=== PATIENT | female | born 1950 | race Caucasian/White ===

== ENCOUNTER → 2017-03-03 | Outpatient (CLI) | payer MEDICAID | LOC: FIMAGING 09:23 | PROVIDERS: ATTEND Internal Medicine Hematology & Oncology | DX: K82.1 Hydrops of gallbladder (principal); K80.20 Calculus of gallbladder without cholecystitis without obstruction; K76.89 Other specified diseases of liver; R93.2 Abnormal findings on diagnostic imaging of liver and biliary tract ==

== ENCOUNTER 2017-04-04 05:52 | Day surgery (SDC) | payer OTHER, MEDICAID ==
[2017-04-04] MEDS ORDERED: levOFLOXACIN 500 MG/DEXTROSE 100 ML IV ONE (06:16)
[2017-04-04] MEDS ORDERED: LR 1,000 ML IV ONE (06:18)
--- NOTE | 2017-04-04 06:21 | PDHPUP ---
History & Physical Update H&P update statement: This history and physical update is based on an assessment of the patient which was completed after admission or registration (within 24 hours), but prior to the surgery/procedure. H&P update: H&P reviewed & patient examined, no change in patient's condition since H&P completed
[2017-04-04 06:46] VITALS: PULSE 80
[2017-04-04] MEDS ORDERED: BUPIVACAINE 0.5% 30 ML SDV ONE (06:58)
[2017-04-04] MEDS ORDERED: PROPOFOL 200 MG/20 ML VIAL ONE (07:28)
[2017-04-04] MEDS ORDERED: fentaNYL 250 MCG/5 ML INJ ONE (07:28)
[2017-04-04] MEDS ORDERED: LIDOCAINE 2% 100 MG/5 ML SYR ONE (07:29)
[2017-04-04] MEDS ORDERED: ROCURONIUM 50 MG/5 ML VIAL ONE (07:29)
[2017-04-04] MEDS ORDERED: DEXAMETHASONE 4 MG/ML VIAL ONE ×2 (07:29)
[2017-04-04] MEDS ORDERED: LABETALOL HCL 5 MG/ML 20 ML MDV ONE (08:22)
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
[2017-04-04] MEDS ORDERED: ONDANSETRON 4 MG/2 ML VIAL IVP PRN (08:52)
[2017-04-04] MEDS ORDERED: LR 500 ML IV PRN (08:52)
[2017-04-04] MEDS ORDERED: fentaNYL 100 MCG/2 ML INJ IVP PRN (08:52)
[2017-04-04] MEDS ORDERED: ACETAMINOPHEN 500 MG TAB PO PRN (08:52)
[2017-04-04] MEDS ORDERED: NALOXONE HCL 0.4 MG/ML INJ IVP PRN (08:52)
--- NOTE | 2017-04-04 08:52 | POSTOPPROG ---
Post Op Note Date of Operation: 04/04/17 Surgeon: Ivanna Zavala Dispute Specialist: edy Anesthesiologist: emi Anesthesia: GET(General Endotracheal) Pre-op Diagnosis: symptomatic cholelithiasis Post-op Diagnosis: same Indication: 66yo F with symptomatic cholelithiasis on US Procedure: lap samuel Findings: stones Inf/Abcess present in the surg proc area at time of surgery?: No Depth: Organ Space EBL: Minimal Complications: none immediately post-op Specimen(s): gallbladder
--- NOTE | 2017-04-04 08:54 | POSTANESTH ---
Post Anesthetic Evaluation Respiratory Status: Normal, Stable Level of Consciousness/Mental Status: Can Participate in Eval Pain Control: Adequate, Prn Tx Ordered Nausea/Vomiting Control: Adequate, Prn Tx Ordered
[2017-04-04] MEDS ORDERED: ONDANSETRON 4 MG/2 ML VIAL ONE (10:56)
[2017-04-04 12:16] VITALS: RESP 16; TEMP 97.9
[2017-04-04 12:19] VITALS: BP 154/90; O2SAT 93
--- NOTE | 2017-04-08 17:31 | GOP ---
[f rep st] OPERATIVE REPORT DATE OF OPERATION: 04/04/2017 SURGEON: Ivanna Zavala MD J[employer]ING MACHINE OPERATOR: Minda Vuong PA-C ANESTHESIA: Chad Velarde MD/general. PREOPERATIVE DIAGNOSIS: Cholecystitis. POSTOPERATIVE DIAGNOSIS: Cholecystitis. PROCEDURE PERFORMED: Laparoscopic cholecystectomy. FINDINGS: SPECIMENS: Gallbladder. ESTIMATED BLOOD LOSS: 10 cc. INDICATIONS: The patient is 66-year-old who was referred for cholecystectomy. DESCRIPTION OF PROCEDURE: The patient was brought into the operating room and placed supine on the table, and general anesthesia was administered. Her abdomen was prepped and draped in the usual valentin rile fashion. I infiltrated all sites with 0.5% Marcaine prior to making incisions. I made an inci debra above her umbilicus. I elevated it and inserted a Veress needle. Passed the hanging drop test . Her abdomen insufflated easily to a pressure of 15 mmHg. Under direct vision, I placed a 5 mm tr ocar with a camera. There were no injuries from Veress needle placement. I placed a 10 mm subxipho id trocar and two 5 mm trocars along the right costal margin. I lifted her gallbladder cephalad and laterally to expose the triangle of Calot. I carefully exposed and dissected the cystic artery and the cystic duct so that they were the only 2 structures directly entering the gallbladder. They we re each singly clipped toward the gallbladder, doubly clipped distally, and transected with scissors to remove it from the gallbladder fossa with electrocautery. The gallbladder was placed in an Endo Catch bag and removed via the subxiphoid trocar. During the case, I identified the duodenum and the common bile duct, and both were protected. The clips were examined and were in satisfactory positi on. Hemostasis achieved on the gallbladder bed with electrocautery and Bindu. The abdomen was all owed to desufflate. Ports were removed under direct vision. The fascia at the 10 mm trocar site wa s closed with 0 Vicryl. Skin closed with 4-0 Monocryl. Dermabond applied. She was awakened in the operating room, extubated, and transferred to PACU in stable condition. /[id number]/MODL
== END 2017-04-04 11:40 | disposition home or self-care (01) ==
LOC: FSGY 05:52
PROVIDERS: ATTEND Surgery
PROC: 0FT44ZZ Resection of Gallbladder, Percutaneous Endoscopic Approach (ICD-10-PCS; principal; 2017-04-04 07:15)
DX: K80.20 Calculus of gallbladder without cholecystitis without obstruction (principal); R10.13 Epigastric pain; G40.909 Epilepsy, unspecified, not intractable, without status epilepticus; Z85.3 Personal history of malignant neoplasm of breast; Z88.0 Allergy status to penicillin
CPT/HCPCS: J1100; J1956; J2001; J2405; J2704; J3010; J3490

== ENCOUNTER → 2018-03-13 | Outpatient (CLI) | payer OTHER, MEDICAID | LOC: FIMAGING 11:37 | PROVIDERS: ATTEND Internal Medicine Hematology & Oncology | DX: Z12.31 Encounter for screening mammogram for malignant neoplasm of breast (principal); Z85.3 Personal history of malignant neoplasm of breast; Z80.3 Family history of malignant neoplasm of breast ==

== ENCOUNTER → 2019-03-17 | Outpatient (CLI) | payer OTHER, MEDICAID | LOC: FIMAGING 13:26 ==